=== PATIENT | male | born 1980 | race Caucasian/White ===

== ENCOUNTER → 2021-07-04 | Outpatient (CLI) | payer MEDICARE, OTHER ==
[~2021-07-04] MED LIST: IBUPROFEN600 MG PO; ZOFRAN4 MG PO
[2021-07-04 14:32] LABS: HEMOGLOBIN 15.7 gm/dl (14.0-17.5); RED BLOOD COUNT 5.29 M/UL (4.20-5.50); WHITE BLOOD COUNT 6.4 K/UL (4.5-11.0)
[2021-07-04 15:04] LABS: BUN/CREATININE RATIO 10 (0-10)
== END ==
LOC: LAB 13:41
PROVIDERS: Nurse Practitioner Family
DX: G43.909 Migraine, unspecified, not intractable, without status migrainosus (principal); E55.9 Vitamin D deficiency, unspecified; E05.90 Thyrotoxicosis, unspecified without thyrotoxic crisis or storm; R94.6 Abnormal results of thyroid function studies; R68.89 Other general symptoms and signs
CPT/HCPCS: 36415; 80053; 80061; 82607; 82652; 84439; 84443; 85025

== ENCOUNTER 2021-12-28 11:22 | Emergency (ER) | payer MEDICARE, OTHER ==
[~2021-12-28] VITALS: Ht 175.3 cm; Wt 65.8 kg
== END 2021-12-28 14:07 | disposition home or self-care (01) ==
LOC: ER1 11:22
DX: U07.1 COVID-19 (principal); Q85.00 Neurofibromatosis, unspecified; Z95.0 Presence of cardiac pacemaker; F17.290 Nicotine dependence, other tobacco product, uncomplicated
CPT/HCPCS: 99283; M0222